=== PATIENT | female | born 1995 | race Two or more races ===

== ENCOUNTER 2023-01-16 08:16 | Emergency (ER) | payer OTHER ==
[~2023-01-16] VITALS: Ht 162.6 cm; Wt 78.5 kg
[2023-01-16] MEDS ORDERED: PRENATE ELITE1 EAC2 PO (08:31)
[2023-01-16 09:29] LABS: HEMATOCRIT 32.3 % (36.0-45.00); HEMOGLOBIN 11.1 g/dL (12.0-15.00); MEAN CELL VOLUME 83.4 fL (80.00-100.00); MEAN CORPUSCULAR HEMOGLOBIN 28.7 pg (27.00-32.0); MEAN CORPUSCULAR HGB CONC 34.4 g/dl (32.0-36.0); PLATELET COUNT 182 K/uL (150-450); RED BLOOD COUNT 3.87 M/uL (4.00-6.00)
== END 2023-01-16 13:12 | disposition home or self-care (01) ==
LOC: ER 08:16
PROVIDERS: General Practice
DX: O98.512 Other viral diseases complicating pregnancy, second trimester (principal); J10.1 Influenza due to other identified influenza virus with other respiratory manifestations; Z3A.18 18 weeks gestation of pregnancy; Z20.822 Contact with and (suspected) exposure to COVID-19

== ENCOUNTER 2023-02-11 16:07 | Outpatient (CLI) | payer OTHER ==
[~2023-02-11 16:07] MED LIST: PRENATE ELITE1 EAC2 PO
== END 2023-02-11 16:13 | disposition home or self-care (01) ==
LOC: PRENATAL 16:07
PROVIDERS: ATTEND Obstetrics & Gynecology Maternal & Fetal Medicine
DX: O35.3XX0 Maternal care for (suspected) damage to fetus from viral disease in mother, not applicable or unspecified (principal); O28.1 Abnormal biochemical finding on antenatal screening of mother; O44.00 Complete placenta previa NOS or without hemorrhage, unspecified trimester; O43.90 Unspecified placental disorder, unspecified trimester; Z3A.21 21 weeks gestation of pregnancy

== ENCOUNTER 2023-03-26 15:24 | Outpatient (CLI) | payer OTHER | END 2023-03-26 15:25 | disposition home or self-care (01) | LOC: PRENATAL 15:24 | PROVIDERS: ATTEND Obstetrics & Gynecology Maternal & Fetal Medicine | DX: O26.849 Uterine size-date discrepancy, unspecified trimester (principal); O28.1 Abnormal biochemical finding on antenatal screening of mother; O43.90 Unspecified placental disorder, unspecified trimester; Z3A.28 28 weeks gestation of pregnancy ==

== ENCOUNTER 2023-05-28 14:00 | Outpatient (CLI) | payer OTHER | END 2023-05-28 14:02 | disposition home or self-care (01) | LOC: PRENATAL 14:00 | PROVIDERS: ATTEND Obstetrics & Gynecology Maternal & Fetal Medicine | DX: O26.849 Uterine size-date discrepancy, unspecified trimester (principal); O36.8199 Decreased fetal movements, unspecified trimester, other fetus; O43.90 Unspecified placental disorder, unspecified trimester; Z3A.37 37 weeks gestation of pregnancy ==